=== PATIENT | female | born 1950 | race American Indian/Alaskan Native ===

== ENCOUNTER 2017-02-08 06:33 | Day surgery (SDC) | payer MEDICARE ==
[2017-02-08] MEDS ORDERED: DIPRIVAN 10 MG/ML IV ONE ×2 (07:42→10:53)
[2017-02-08] MEDS ORDERED: PEPCID IV NR (07:59)
[2017-02-08] MEDS ORDERED: NACL 0.9% 1000 ML 1,000 ML IV SCH (08:00)
--- NOTE | 2017-02-08 08:01 | Anesthesia Day of Surgery ---
Anesthesia Day of Surgery - Day of Surgery Patient Examined: Yes Patient H&P Reviewed: Yes Patient is NPO: Yes
--- NOTE | 2017-02-08 08:01 | Anesthesia Consultation ---
Anesthesia Consult and Med Hx Date of service: 02/08/17 - Airway Anesthetic Teeth Evaluation: Good, Crowns ROM Head & Neck: Adequate Mental/Hyoid Distance: Adequate Mallampati Class: Class II Intubation Access Assessment: Probably Good - Pulmonary Exam CTA: Yes - Cardiac Exam Cardiac Exam: RRR - Pre-Operative Health Status ASA Pre-Surgery Classification: ASA3 Proposed Anesthetic Plan: MAC - Pulmonary Hx Smoking: Yes (quit at age 21) Hx Asthma: Yes - Cardiovascular System Hx Hypertension: Yes - Central Nervous System Hx Seizures: No CVA: No - Gastrointestinal Hx Gastroesophageal Reflux Disease: Yes - Endocrine Hx Renal Disease: No Hx Liver Disease: Yes (hep B) Hx Non-Insulin Dependent Diabetes: No (former diabetic) Hx Thyroid Disease: No - Other Systems Hx Obesity: Yes (h/o gastric bypass)
[2017-02-08] MEDS ORDERED: PEPCID IV ONE (08:16)
--- NOTE | 2017-02-08 10:45 | Operative Report ---
Operative Report Operative Report: EGD Post bypass DATE: 02/08/17 OPERATIVE REPORT - EGD PREOP DIAGNOSIS: gastric dyspepsia POSTOP DIAGNOSIS: same SURGERY: Upper endoscopy. SURGEON: Dr.Duncan Veloz NURSING DEPARTMENT CHAIRPERSON: Ambar Pino DO. TYPE OF ANESTHESIA: MAC. ESTIMATED BLOOD LOSS: None. COMPLICATIONS: None. SPECIMENS REMOVED: None. FINDINGS: 1. normal esophagus 2. gastric pouch -30cc 3. gastrojejunal anastomosis is 20-25mm INDICATIONS:INDICATION FOR PROCEDURE: Patient is a 66-year-old F s/p gastric bypass in 2013 The patient is here today for evaluation for revisional surgery. In September 2016 she had a routine EGD done by her GI doctor who noted a suture granulama by her GJ. The patient is here for a planned EGD for gastric dyspepsia and to visualize the suture granuloma. PROCEDURE DETAILS: After consent was reviewed, patient was taken back to the operating room where patient was placed in the left lateral decubitus position and a bite block was placed in the mouth. After a time-out was called, MAC anesthesia was initiated. I then passed the endoscope into the patients oropharynx, into the esophagus, visualized the entire esophagus, which was all within normal limits. I then visualized the gastric pouch which was normal and about 30ml in size. The gastrojejunal anastomosis was normal at about 20-25mm. Just proximal to the GJ anastomosis there was suture knotted with long suture strings attached to it. Attempts were main use cautery to remove some of the pieces of this suture granuloma but were unsuccessful. The proximal portion of the andreea limb was normal. I then desufflated the gastric pouch and removed the endoscope. Patient tolerated procedure well and was transferred to recovery room in good and stable condition
--- NOTE | 2017-02-08 10:46 | Discharge Summary ---
Providers - Providers Attending physician: NERY BOWDEN Primary care physician: CHARLA KRAFT Hospitalization Hospital course: 66 y.o. F presented for EGD hx of bypass. Disposition: DC-01 TO HOME OR SELFCARE Core Measure Documentation - Palliative Care Palliative Care/ Comfort Measures: Not Applicable - Core Measures Any of the following diagnoses?: none Exam - Physical Exam Narrative exam: no changes - Constitutional Vitals: Temp Pulse Resp BP Pulse Ox 97.7 F 60 15 126/78 98 02/08/17 08:45 02/08/17 08:45 02/08/17 08:45 02/08/17 08:45 02/08/17 08:45 Plan Activity: no restrictions Follow up with: CHARLA KRAFT MD [Primary Care Provider] - 7 Days
[2017-02-08] MEDS ORDERED: CARAFATE PO SCH ×2 (11:30)
[2017-02-08 11:35] VITALS: BP 153/77
--- NOTE | 2017-02-08 12:20 | Post Anesthesia Evaluation ---
- Post Anesthesia Evaluation Patient Participated: Yes Airway Patent: Yes Stable Respiratory Function: Yes Nausea/Vomiting: No Temp > 96.8F: Yes Pain Manageable: Yes Adequeate Hydration: Yes Anesthesia Complications: No Block Receding Appropriately: Not Applicable Patient on Ventilator: No
== END 2017-02-08 06:34 | disposition home or self-care (01) ==
LOC: GIO 06:33
PROVIDERS: ATTEND Specialist
DX: R10.13 Epigastric pain (principal); B19.10 Unspecified viral hepatitis B without hepatic coma; K21.9 Gastro-esophageal reflux disease without esophagitis; I10 Essential (primary) hypertension; J45.909 Unspecified asthma, uncomplicated; E11.9 Type 2 diabetes mellitus without complications; E66.9 Obesity, unspecified; E78.00 Pure hypercholesterolemia, unspecified; G43.909 Migraine, unspecified, not intractable, without status migrainosus; Z68.35 Body mass index [BMI] 35.0-35.9, adult; Z79.899 Other long term (current) drug therapy; Z98.84 Bariatric surgery status; Z98.0 Intestinal bypass and anastomosis status; Z87.891 Personal history of nicotine dependence; Z91.018 Allergy to other foods; Z88.8 Allergy status to other drugs, medicaments and biological substances
CPT/HCPCS: 43235; 82962; J2704; J7030

== ENCOUNTER 2017-02-15 11:00 | Outpatient (CLI) | payer MEDICARE | END 2017-02-15 11:01 | disposition home or self-care (01) | LOC: SLR 11:00 | PROVIDERS: ATTEND Specialist | DX: G47.33 Obstructive sleep apnea (adult) (pediatric) (principal) | CPT/HCPCS: 95811 ==

== ENCOUNTER 2017-02-21 06:09 | Inpatient (IN) | payer MEDICARE ==
--- NOTE | 2017-02-18 09:27 | Anesthesia Consultation ---
Anesthesia Consult and Med Hx Date of service: 02/18/17 - Airway Anesthetic Teeth Evaluation: Good ROM Head & Neck: Adequate Mental/Hyoid Distance: Adequate Mallampati Class: Class II Intubation Access Assessment: Probably Good - Pulmonary Exam CTA: Yes - Cardiac Exam Cardiac Exam: RRR - Pre-Operative Health Status ASA Pre-Surgery Classification: ASA3 Proposed Anesthetic Plan: General - Pulmonary Hx Smoking: Yes (quit at age 21) Hx Asthma: Yes (resolved with weight loss) SOB: Yes Hx Sleep Apnea: Yes - Cardiovascular System Hx Hypertension: Yes (since 1997) - Central Nervous System Hx Seizures: No CVA: No Hx Psychiatric Problems: No - Gastrointestinal Hx Gastroesophageal Reflux Disease: Yes - Endocrine Hx Renal Disease: No Hx Liver Disease: Yes (hep B, fatty liver) Hx Non-Insulin Dependent Diabetes: No (former diabetic) Hx Thyroid Disease: No - Other Systems Hx Alcohol Use: No Hx Substance Use: No Hx Cancer: No Hx Obesity: Yes (h/o gastric bypass)
[~2017-02-21 06:09] MED LIST: ANCEF/STERILE WATER 2 GM/20 ML 2 GM/20 ML SYRINGE IV NR; APRESOLINE IV PRN; FLAGYL 500 MG/100 ML 500 MG/100 ML BAG IV NR; LACTATED RINGERS 1,000 ML IV SCH; LOVENOX SUB-Q NR; MORPHINE IV PRN; MYLICON PO PRN; PEPCID IV NR; REGLAN IV PRN; TRANSDERM-SCOP TD NR; VERSED IV NR; ZOFRAN IV PRN
[2017-02-21] MEDS ORDERED: NACL BACTERIOSTATIC INFILTRATI ONE (06:40)
[2017-02-21] MEDS ORDERED: MARCAINE 0.5% 30 ML INFILTRATI ONE (07:18)
[2017-02-21] MEDS ORDERED: DIPRIVAN 10 MG/ML IV ONE (07:26)
[2017-02-21] MEDS ORDERED: XYLOCAINE MPF 2% ONE (07:26)
[2017-02-21] MEDS ORDERED: ZEMURON IV ONE (07:26)
[2017-02-21] MEDS ORDERED: QUELICIN ONE (07:26)
[2017-02-21] MEDS ORDERED: SUBLIMAZE ONE (07:26)
[2017-02-21] MEDS ORDERED: MORPHINE IV PRN (07:41)
--- NOTE | 2017-02-21 07:41 | Anesthesia Day of Surgery ---
Anesthesia Day of Surgery - Day of Surgery Patient Examined: Yes Patient is NPO: Yes
[2017-02-21] MEDS ORDERED: MARCAINE 0.5% INFILTRATI ONE (08:25)
[2017-02-21] MEDS ORDERED: NACL 0.9% IR ONE (08:25)
[2017-02-21] MEDS ORDERED: ZOFRAN ONE (08:55)
[2017-02-21] MEDS ORDERED: DECADRON ONE (09:21)
[2017-02-21] MEDS ORDERED: ZOFRAN IV ONE (09:30)
[2017-02-21] MEDS ORDERED: DILAUDID ONE (09:44)
[2017-02-21] MEDS: DILAUDID IV PRN ×2 (09:44→09:54)
[2017-02-21] MEDS ORDERED: NACL 0.9% 1000 ML 1,000 ML IV SCH (10:00)
[2017-02-21] MEDS: NORCO PO PRN ×2 (18:36→23:24)
[2017-02-22 04:53] LABS: Basophils % (Auto) 0.3 % (0.0-1.8); Eosinophils % (Auto) 0.1 % (0.0-4.3); Hematocrit 35.8 % (30.3-42.9); Hemoglobin 12.2 gm/dl (10.1-14.3); Mean Corpuscular HGB Conc 34 % (30-34); Mean Corpuscular Hemoglobin 32 pg (28-32); Mean Corpuscular Volume 94 fl (79-97); Platelet Count 203 K/mm3 (140-440); Red Blood Count 3.81 M/mm3 (3.65-5.03); Red Cell Distribution Width 13.5 % (13.2-15.2); White Blood Count 9.8 K/mm3 (4.5-11.0)
[2017-02-22 05:06] LABS: Anion Gap 16 mmol/L; BUN/Creatinine Ratio 16; Blood Urea Nitrogen 11 mg/dL (7-17); Calcium 9.3 mg/dL (8.4-10.2); Carbon Dioxide 26 mmol/L (22-30); Chloride 99.6 mmol/L (98-107); Glucose 89 mg/dL (65-100); Potassium 4.2 mmol/L (3.6-5.0); Sodium 137 mmol/L (137-145)
[2017-02-22] MEDS: NORCO PO PRN (09:30)
[2017-02-22] MEDS ORDERED: PEPCID IV SCH (10:00)
[2017-02-22] MEDS ORDERED: DIOVAN PO SCH (10:00)
[2017-02-22] MEDS ORDERED: LOVENOX SUB-Q SCH (10:00)
--- NOTE | 2017-02-22 10:57 | Discharge Summary ---
Providers - Providers Date of Admission: 02/21/17 06:09 Attending physician: NERY BOWDEN Primary care physician: CHARLA KRAFT Hospitalization Reason for admission: Gastric bypass revision Condition: Good Procedures: Laparoscopic GJ revision with biliopancreatic limb lengthening Hospital course: 66 y.o. F was admitted to the hospital for Laparoscopic GJ revision with biliopancreatic limb lengthening. She tolerated the procedure well. On POD 1 she tolerated liquids and ambulated well. Her pain was well controlled. Disposition: DC-01 TO HOME OR SELFCARE Core Measure Documentation - Palliative Care Palliative Care/ Comfort Measures: Not Applicable - Core Measures Any of the following diagnoses?: none Exam - Physical Exam Narrative exam: Gen: A+Ox3 Pulm: equal rise and fall of chest Cardio: RRR abd: soft, tender at incision sites. no rebound no guarding. incision sites- dry blood. ext: no c/c/e - Constitutional Vitals: Temp Pulse Resp BP Pulse Ox 98.2 F 60 20 137/71 98 02/22/17 04:37 02/22/17 09:29 02/22/17 09:44 02/22/17 09:29 02/22/17 04:37 Plan Activity: other (no lifting >15lb for 6 weeks. May shower tomorrow with back to water. ) Diet: clear liquids (sugar free clears ) Wound: keep clean and dry Additional Instructions: follow up for wound check Follow up with: CHARLA KRAFT MD [Primary Care Provider] - 7 Days
[2017-02-22 12:57] VITALS: BP 116/49
[2017-02-24] MEDS ORDERED: TRANSDERM-SCOP TD SCH (10:00)
== END 2017-02-22 13:30 | disposition home or self-care (01) | DRG 328 ==
LOC: 3A 06:09 → 3B-SURG 10:26
PROVIDERS: ADMIT Specialist; ATTEND Specialist
PROC: 0D164ZB Bypass Stomach to Ileum, Percutaneous Endoscopic Approach (ICD-10-PCS; principal; 2017-02-22)
PROC: 0BQT4ZZ Repair Diaphragm, Percutaneous Endoscopic Approach (ICD-10-PCS; 2017-02-22)
PROC: 0DX64Z5 Transfer Stomach to Esophagus, Percutaneous Endoscopic Approach (ICD-10-PCS; 2017-02-22)
DX: K91.89 Other postprocedural complications and disorders of digestive system (principal); J45.909 Unspecified asthma, uncomplicated; I10 Essential (primary) hypertension; K21.9 Gastro-esophageal reflux disease without esophagitis; E66.9 Obesity, unspecified; M19.90 Unspecified osteoarthritis, unspecified site; K95.89 Other complications of other bariatric procedure; E11.9 Type 2 diabetes mellitus without complications; G43.909 Migraine, unspecified, not intractable, without status migrainosus; K30 Functional dyspepsia; K91.1 Postgastric surgery syndromes; Y83.8 Other surgical procedures as the cause of abnormal reaction of the patient, or of later complication, without mention of misadventure at the time of the procedure; Y82.8 Other medical devices associated with adverse incidents; Z82.49 Family history of ischemic heart disease and other diseases of the circulatory system; Z68.35 Body mass index [BMI] 35.0-35.9, adult; Z87.891 Personal history of nicotine dependence; Z80.9 Family history of malignant neoplasm, unspecified
CPT/HCPCS: 36415; 80048; 82962; 85025; 94760; C9250; J0330; J0690; J1100; J1170; J1650; J2250; J2405; J2704; J3010; J7120